=== PATIENT | female | born 1985 | race Caucasian/White ===

== ENCOUNTER 2019-03-05 11:24 | Day surgery (SDC) | payer BC ==
--- NOTE | 2019-03-05 08:46 | GHP ---
[f rep st] HISTORY AND PHYSICAL DATE OF ADMISSION: 03/05/2019 ADMITTING DIAGNOSIS: Missed at 6 weeks. HISTORY OF PRESENT ILLNESS: Patient is a 33-year-old, G1, P0, with last menstrual period 12/16/2018 at 10 weeks 4 days, who presented to the [facility] of [place] for a new OB visit on February 28. The patient had a positive urine test the beginning of January and had blood work done on January 21 with a quant HCG of 166, and progesterone level of 15. Currently, patient denies any vaginal bleeding or any cramping or abdominal pain. No fevers or chills. She did have an ultrasound today at her new OB visit that revealed a crown-rump length of 6 weeks 3 days with no heartbeat and a separate amniotic sac with a yolk sac, but no fetus. The patient then presented to my office to discuss treatment options. Patient plans to go to [facility] next week and will be there for 1 week. The patient states cycles are irregular. Prior to December 16 she did bleed for 4 days, then her cycle was the end of October for 3 days, then the beginning of October for 3 days. She discontinued control pills September 2018 secondary to wanting to conceive. PAST OB HISTORY: This is patient's 1st . PAST LUMBER PULLER HISTORY: Age of menarche was 14. Cycles since discontinuing the pill have been irregular, but usually every 32 days for 3-5 days. The patient denies a history of any abnormal Pap smears or any exposure to STDs. CURRENT MEDICATIONS: Just include vitamins. ALLERGIES: Sulfa. PAST MEDICAL HISTORY: Remarkable for kidney stones. PAST SURGICAL HISTORY: None. FAMILY HISTORY: MGF and PGF with colon cancer. SOCIAL HISTORY: Patient is and lives with her . She currently denies any alcohol, tobacco, or illicit drug use. She is an traffic officer. REVIEW OF SYSTEMS: A 10-point review of systems was negative. Pertinent positives noted in HPI. LABS: Pending at this time. STUDIES: As above. EXAM: VITAL SIGNS: The patient is afebrile. Vital signs are stable. GENERAL: The patient is a well-nourished, well-developed female. Alert and oriented x3. No apparent distress. SKIN: Warm, dry without rash. NEURO: Grossly intact. CARDIOVASCULAR: Regular rate and rhythm. LUNGS: Clear to auscultation bilaterally. ABDOMEN: Soft, nontender, nondistended. PELVIC: Exam is deferred. EXTREMITIES: Normal to inspection without calf tenderness or edema. ASSESSMENT/PLAN: The patient is a 33-year-old, G1, P0, with a missed at 6 weeks. 1. Condolences were given to patient. All records were reviewed from the [facility]. Review treatment options and discussed conservative management with observation versus medical management with Cytotec versus surgical management with suction D and C. The patient would like to discuss options further with partner, but she is leaning toward observation at this time. Later that day, the patient called and wants to proceed with suction D and C prior to leaving for [facility]. Will repeat ultrasound prior to the D and C. 2. Surgical consents will be obtained at the bedside. Discussed risks, benefits, and alternatives of the procedure including bleeding, infection, and damage to surrounding organs, risk of uterine per perforation, risk of uterine scarring, and issues with future fertility. 3. Patient understands all risks of the procedure and wants to proceed at this time. 4. Surgery is tentatively scheduled for the March 05 at 12:30. 5. Will get blood work the morning of surgery; if the patient is Rh negative, will give RhoGAM. 6. Will give doxycycline 100 mg orally prior to going back to the operating room and then again in the PACU. /[id number]/MODL MTDD
[2019-03-05] MEDS ORDERED: DOXYCYCLINE HYCLATE 100 MG CAP/TAB PO ONE ×2 (12:02)
[2019-03-05] MEDS ORDERED: LR 1,000 ML IV ONE (12:02)
[2019-03-05] MEDS ORDERED: AMMONIA AROMATIC 1 EACH AMP IH ONE (12:24)
[2019-03-05] MEDS ORDERED: OXYTOCIN 10 UNIT/ML VIAL ONE (12:25)
[2019-03-05] MEDS ORDERED: MISOPROSTOL 200 MCG TAB ONE (12:25)
[2019-03-05] MEDS ORDERED: TERBUTALINE SULFATE 1 MG/ML VIAL ONE (12:25)
--- NOTE | 2019-03-05 12:40 | PDANEPAE ---
ANE Past Medical History - Pulmonary History Hx Oxygen in Use at Home: No Hx Sleep Apnea: No Sleep Apnea Screening Result - Last Documented: Negative - Endocrine History Hx Diabetes: No - Chronic Pain History Chronic Pain: No ANE Review of Systems Review of Systems: ANE Patient History - Allergies Allergies/Adverse Reactions: bee venom protein (honey bee) Allergy (Verified 03/05/19 12:28) Sulfa (Sulfonamide Antibiotics) Allergy (Verified 03/05/19 08:00) - NPO status NPO Since - Liquids (Date): 03/05/19 NPO Since - Liquids (Time): 10:30 NPO Since - Solids (Date): 03/04/19 NPO Since - Solids (Time): 19:00 - Smoking Hx Smoking Status: Never smoked ANE Labs/Vital Signs - Vital Signs Blood Pressure: 115/78 Heart Rate: 81 Respiratory Rate: 16 O2 Sat (%): 97 Height: 165.1 cm Weight: 74.843 kg ANE Physical Exam - Airway Neck exam: FROM Mallampati Score: Class 1 Mouth exam: normal dental/mouth exam - Pulmonary Pulmonary: no respiratory distress, no rales or rhonchi - ASA Status ASA Status: I ANE Anesthesia Plan Total IV Anesthesia: Yes
[2019-03-05] MEDS ORDERED: fentaNYL 100 MCG/2 ML INJ ONE (12:42)
[2019-03-05] MEDS ORDERED: PROPOFOL/EMULSION 500 MG/50 ML BOTTLE IV ONE (12:42)
[2019-03-05] MEDS ORDERED: MIDAZOLAM 2 MG/2 ML VIAL ONE (12:42)
--- NOTE | 2019-03-05 13:09 | PDHPUP ---
History & Physical Update H&P update statement: This history and physical update is based on an assessment of the patient which was completed after admission or registration (within 24 hours), but prior to the surgery/procedure. H&P update: H&P reviewed & patient examined, no change in patient's condition since H&P completed
--- NOTE | 2019-03-05 13:13 | POSTOPPROG ---
Post Op Note Date of Operation: 03/05/19 Surgeon: Frances Friend Volleyball Referee: None Anesthesiologist: Wesley Veloz Anesthesia: Other (Specify) (MAC) Pre-op Diagnosis: Missed Ab at 6 weeks Post-op Diagnosis: Missed Ab at 6 weeks Indication: 33 y/o w/ LMP 3/3 @ 10 4/7 wks w/ missed AB @ 6 3/7 wks on u/s- confirm Procedure: Suction D&C under u/s guidance Findings: No VB; os closed; Ut sounded to 9cm; Mod amt POCs noted; Pt is Rh neg Inf/Abcess present in the surg proc area at time of surgery?: No Depth: Organ Space EBL: 50-100 (50cc) Total fluids administered: 400cc LR UO: patient emptied her bladder prior Complications: None Bowel Protocol: N/A Clean Closure Performed: N/A Specimen(s): POCs
[2019-03-05] MEDS ORDERED: KETOROLAC 30 MG/1 ML SDV ONE (13:21)
[2019-03-05] MEDS ORDERED: NALOXONE HCL 0.4 MG/ML INJ IVP PRN (13:37)
[2019-03-05] MEDS ORDERED: HYDROCODONE/APAP 5/325 TAB PO PRN (13:37)
[2019-03-05] MEDS ORDERED: ALBUTEROL 3 ML DEYVIAL IH PRN (13:37)
[2019-03-05] MEDS ORDERED: ONDANSETRON 4 MG/2 ML VIAL IVP PRN (13:37)
[2019-03-05] MEDS: fentaNYL 100 MCG/2 ML INJ IVP PRN ×2 (13:53→14:07)
--- NOTE | 2019-03-05 13:53 | POSTANESTH ---
Post Anesthetic Evaluation Cardiovascular Status: Similar to Pre-Op Cond Respiratory Status: Similar to Pre-op Cond. Level of Consciousness/Mental Status: Can Participate in Eval, Mildly Sleepy, Arousable Pain Control: Adequate, Prn Tx Ordered Nausea/Vomiting Control: Adequate, Prn Tx Ordered Complications Possibly Related to Anesthesia: None Noted
--- NOTE | 2019-03-05 14:38 | GOP ---
[f rep st] OPERATIVE REPORT DATE OF OPERATION: SURGEON: Frances Friend DO ANESTHESIA: MAC. ANESTHESIOLOGIST: Dr. Wesley Veloz PREOPERATIVE DIAGNOSIS: Missed at 6 weeks. POSTOPERATIVE DIAGNOSIS: Missed at 6 weeks. PROCEDURE PERFORMED: Suction dilation and curettage under ultrasound guidance. FINDINGS: No active vaginal bleeding noted. The cervix was closed and was dilated up to a #8.5 Hegar. A curved 8 mm suction curette was used. Uterus was sounded to 9 cm. Moderate amount of products of conception was noted. Patient is Rh negative. SPECIMENS: Products of conception. INDICATIONS: The patient is a 33-year-old, G1, P0, with last menstrual period 12/16/2018, at 10 weeks 4 days by dates, who presented at [facility] for a new OB visit and had an ultrasound that was consistent with a missed AB at 6 weeks, 3 days with an additional amniotic sac with no embryo. The [place]. Condolences were given to the patient. Discussed treatment options, including conservatory management with observation, medical management with Cytotec versus surgical management with a D and C. Patient wanted to think about it, but is heading off to [facility] in a week and then ultimately decided she wanted to proceed with a suction D and C for definitive treatment. Discussed risks, benefits, and alternatives of the procedure including but not limited to, bleeding, infection, risk of uterine perforation with damage to surrounding organs, as well as risk of uterine scarring and difficulty with future fertility. Patient understands all risks at this time and wants to proceed to the operating room. The patient was properly consented. DESCRIPTION OF PROCEDURE: Patient was taken to the operating room where anesthesia was obtained without difficulty. The patient was placed in dorsal lithotomy position on the operating table, and then prepped and draped in the usual sterile fashion. After a WHO time-out was performed, open-ended speculum was placed in the patient's vagina. The patient was then placed in Trendelenburg. The anterior lip of the cervix was grasped with an Allis clamp. The cervix was closed and no vaginal bleeding was noted. The cervix was then dilated up to a #8.5 Hegar. Uterus was gently sounded to 9 cm. A curved 8 mm suction curette was then introduced and suction curette was performed multiple times under ultrasound guidance until all products were removed. Once all products of conception were evacuated, sharp curettage was then performed and this was performed until a gritty surface was appreciated in all 4 quadrants of the uterus. Minimal bleeding was noted at this time. The suction curette was passed one last time to remove any remaining products of conception. Endometrial stripe appeared thin on ultrasound and there were no other areas of suspicion for retained products. All instruments were then removed from the vagina. Hemostasis was noted. The patient tolerated the procedure well. No complications. Sponge, lap, and instrument counts were correct x2. The patient was then taken out of dorsal lithotomy position, awakened, and taken to the recovery room in stable condition. The patient was given 100 mg of doxycycline prior to the start of the case and will receive another 100 mg in the PACU. The patient will also receive RhoGAM prior to discharge home. /[id number]/MODL MTDD
[2019-03-05 15:42] VITALS: BP 102/65
== END 2019-03-05 15:55 | disposition home or self-care (01) ==
LOC: FOBOP 11:24
PROVIDERS: ATTEND Obstetrics & Gynecology
PROC: 10D17ZZ Extraction of Products of Conception, Retained, Via Natural or Artificial Opening (ICD-10-PCS; principal; 2019-03-05)
DX: O02.1 Missed abortion (principal); Z67.11 Type A blood, Rh negative; Z87.442 Personal history of urinary calculi; Z88.2 Allergy status to sulfonamides
CPT/HCPCS: J1885; J2250; J2590; J2704; J3010; J3105; J7613